=== PATIENT | male | born 1960 | race African-American/Black ===

== ENCOUNTER 2018-03-13 13:58 | Emergency (ER) | payer OTHER ==
[2018-03-13] MEDS ORDERED: Meclizine HCl 25 MG TAB ONE (16:10)
--- NOTE | 2018-03-13 16:13 | CT ---
CT HEAD NONCONTRAST: Date: 03/13/18 INDICATION: Head injury, pain. FINDINGS: There is normal size of ventricular system. No acute intracranial hemorrhage, mass effect, or midline shift. There is a small hypodensity just lateral to the posterior body of the right lateral ventricl e, demonstrating the appearance of a benign cyst, although is difficult to definitively characterize. This does not conform to the expected confines of the ventricular system, and therefore, the possibi lity of periventricular cyst is a consideration. Otherwise, there is no acute intracranial abnormalit y identified. IMPRESSION: 1. No acute intracranial abnormality. 2. Small, cystic focus adjacent to the posterior body of the right lateral ventricle. Recommend foll ow-up with pre and postcontrast brain MRI to more definitively characterize. This can be performed no nemergently. CODE T. POS: TPC
== END 2018-03-13 17:32 | disposition home or self-care (01) ==
LOC: ERS 13:58
DX: S09.90XA Unspecified injury of head, initial encounter (principal); X58.XXXA Exposure to other specified factors, initial encounter; Y93.64 Activity, baseball
CPT/HCPCS: 70450